=== PATIENT | female | born 1960 | race Caucasian/White ===

== ENCOUNTER 2017-02-23 10:49 | Emergency (ER) | payer MEDICAID ==
[~2017-02-23] VITALS: Ht 160 cm; Wt 99.1 kg
[2017-02-23 10:55] VITALS: BP 172/84
[2017-02-23] MEDS ORDERED: HYDROcodone/APAP 5/325 TABLET PO ONE (11:30)
[2017-02-23] MEDS ORDERED: METHOCARBAMOL 750 MG TABLET PO ONE (11:30)
[2017-02-23] MEDS ORDERED: METHOCARBAMOL 750 MG TABLET ONE (11:36)
[2017-02-23] MEDS ORDERED: HYDROcodone/APAP 5/325 TABLET ONE (11:36)
== END 2017-02-23 12:40 | disposition home or self-care (01) ==
LOC: ED 12:11
DX: S20.212A Contusion of left front wall of thorax, initial encounter (principal); X58.XXXA Exposure to other specified factors, initial encounter; Y93.89 Activity, other specified; Y99.8 Other external cause status; Y92.009 Unspecified place in unspecified non-institutional (private) residence as the place of occurrence of the external cause

== ENCOUNTER 2018-08-21 15:38 | Emergency (ER) | payer MEDICAID ==
[~2018-08-21] VITALS: Ht 160 cm; Wt 104.0 kg
[2018-08-21 15:57] VITALS: BP 164/89
== END 2018-08-21 18:03 | disposition home or self-care (01) ==
LOC: ED 17:55
DX: S62.662A Nondisplaced fracture of distal phalanx of right middle finger, initial encounter for closed fracture (principal); E05.90 Thyrotoxicosis, unspecified without thyrotoxic crisis or storm; M19.90 Unspecified osteoarthritis, unspecified site; Z98.890 Other specified postprocedural states; Z90.89 Acquired absence of other organs; W19.XXXA Unspecified fall, initial encounter; Y93.89 Activity, other specified; Y92.89 Other specified places as the place of occurrence of the external cause; Y99.8 Other external cause status
CPT/HCPCS: 99284

== ENCOUNTER 2021-03-27 14:41 | Outpatient (CLI) | payer BC ==
[2021-03-27] MEDS ORDERED: OMNIPAQUE 350 MG/ML, 150 ML BOTTLE ONE (16:37)
== END 2021-03-27 23:59 | disposition home or self-care (01) ==
LOC: CFH 14:41
PROVIDERS: ATTEND Physician Assistant
DX: C64.1 Malignant neoplasm of right kidney, except renal pelvis (principal); R93.421 Abnormal radiologic findings on diagnostic imaging of right kidney; Z90.49 Acquired absence of other specified parts of digestive tract
CPT/HCPCS: 74178; 82565; Q9967